=== PATIENT | male | born 1995 | race Caucasian/White ===

== ENCOUNTER 2016-11-09 02:18 | Emergency (ER) | payer BC ==
[2016-11-09 02:28] VITALS: BP 143/73
[2016-11-09] MEDS ORDERED: DOXYcycline CAP(*) 100 MG PO ONE (03:19)
[2016-11-09] MEDS ORDERED: cefTRIAXone VIAL(*) 250 MG VIAL IM ONE (03:19)
--- NOTE | 2016-11-09 04:11 | ED ---
Complaint/Male - History of Current Complaint Chief Complaint: EDUrogenitalProblems Time Seen by Provider: 11/09/16 03:07 Hx Obtained From: Patient, Other: - Patient presents for evaluation of a few days of bumps on his groin after shaving before having unprotected sex with a female friend. No allev factors. Concerned for STD and came for evaluation. - Allergies/Home Medications Allergies/Adverse Reactions: Allergies Allergy/AdvReac Type Severity Reaction Status Date / Time No Known Allergies Allergy Verified 03/12/15 19:43 PMH/Surg Hx/FS Hx/Imm Hx Previously Healthy: Yes Infectious Disease History: No Infectious Disease History: Denies: Traveled Outside the [place] in Last 30 Days - Social History Alcohol Use: Occasionally Substance Use Type: Reports: None Smoking Status (MU): Never Smoked Tobacco Review Of Systems Genitourinary: Negative: Dysuria, Hematuria, Frequency All Other Systems Reviewed And Are Negative: Yes Physical Exam Triage Information Reviewed: Yes Vital Signs On Initial Exam: Initial Vitals Temp Pulse Resp BP Pulse Ox 97.5 F 69 18 143/73 100 11/09/16 02:22 11/09/16 02:22 11/09/16 02:22 11/09/16 02:22 11/09/16 02:22 Vital Signs Reviewed: Yes Appearance: Positive: Well-Appearing, No Pain Distress, Well-Nourished Skin: Positive: Warm, Skin Color Reflects Adequate Perfusion, Dry, Other - Several follicultis on the shaved suprapubic region; however, single painless but pruritic lesion on the L side of base of glans. No regional adenopathy. Head/Face: Positive: Normal Head/Face Inspection Eyes: Positive: Normal, EOMI, NEMESIO ENT: Positive: Normal ENT inspection, Hearing grossly normal, Pharynx normal Neck: Positive: Supple, Nontender, No Lymphadenopathy Respiratory/Lung Sounds: Positive: Clear to Auscultation, Breath Sounds Present Cardiovascular: Positive: Normal, RRR, Pulses are Symmetrical in both Upper and Lower Extremities Abdomen Description: Positive: Nontender, No Organomegaly Male Genital Exam: Positive: normal genitalia, no hernia. Negative: epididymal tenderness, erythema, hernia mass, inguinal tenderness, scrotum tenderness (R), scrotum tenderness (L), testicular tenderness (R), testicular tenderness (L), urethral discharge Musculoskeletal: Positive: Normal, Strength/ROM Intact Neurological: Positive: Normal, Sensory/Motor Intact, Alert, Oriented to Person Place, Time, CN Intact II-III Diagnostics - Vital Signs Vital Signs Temp Pulse Resp BP Pulse Ox 11/09/16 02:22 97.5 F 69 18 143/73 100 - Laboratory Lab Statement: Any lab studies that have been ordered have been reviewed, and results considered in the medical decision making process. Complaint Male Course/Dx - Differential Dx/Diagnosis Differential Diagnosis/HQI/PQRI: Other - Folliculitis and possible STD expossure. He was advised to visit the health department to be evaluated for HIV and syphillis. We would check for GC/Chlaymdia as well as discuss these concerns with partner. Provider Diagnoses: STD exposure. Folliculitis.
== END 2016-11-09 03:38 | disposition home or self-care (01) ==
LOC: ED 02:18
DX: L73.9 Follicular disorder, unspecified (principal); Z20.2 Contact with and (suspected) exposure to infections with a predominantly sexual mode of transmission
CPT/HCPCS: 87491; 87591; 96372; A9270-GY; J0696

== ENCOUNTER 2016-11-14 14:44 | Emergency (ER) | payer BC ==
[2016-11-14 16:04] VITALS: BP 144/61
--- NOTE | 2016-11-14 17:37 | UC ---
Complaint Male HPI - HPI Summary HPI Summary: HAS HAD BUMPS ON GENITALS FOR 9 DAYS; SEEN IN ED SIX DAYS AGO, TREATED FOR GC CHLAMYDIA. TOLD IT WAS CELLULITIS AND GIVEN ABX. CONDITION WORSENING AND SPREADING. RECENTLY WITH NEW SEXUAL PARTNER 1.5 WEEKS AGO. - History of Current Complaint Chief Complaint: UCRash Stated Complaint: RASH AND SORES Time Seen by Provider: 11/14/16 15:58 Hx Obtained From: Patient Onset/Duration: Sudden Onset, Lasting Days, Still Present Timing: Intermittent Severity Initially: Mild Severity Currently: Mild Pain Intensity: 0 Pain Scale Used: 0-10 Numeric Location: Groin - GROIN AND PENIS Aggravating Factor(s): Nothing Alleviating Factor(s): Nothing - Risk Factors Testicular Torsion: Negative - Allergies/Home Medications Allergies/Adverse Reactions: Allergies Allergy/AdvReac Type Severity Reaction Status Date / Time No Known Allergies Allergy Verified 03/12/15 19:43 PMH/Surg Hx/FS Hx/Imm Hx Previously Healthy: Yes - Surgical History Surgical History: None - Family History Known Family History: Negative: Diabetes - Social History Occupation: Employed Full-time Lives: Alone Alcohol Use: Occasionally Substance Use Type: None Smoking Status (MU): Never Smoked Tobacco Review of Systems Constitutional: Negative Skin: Rash - GROIN AND PENIS Eyes: Negative ENT: Negative Respiratory: Negative Cardiovascular: Negative Gastrointestinal: Negative Genitourinary: Negative Motor: Negative Neurovascular: Negative Musculoskeletal: Negative Neurological: Negative Psychological: Negative All Other Systems Reviewed And Are Negative: Yes Physical Exam Triage Information Reviewed: Yes Appearance: Well-Appearing, No Pain Distress, Well-Nourished Vital Signs: Initial Vital Signs Temp 98.7 F 11/14/16 15:58 Pulse 83 11/14/16 15:58 Resp 16 11/14/16 15:58 BP 144/61 11/14/16 15:58 Pulse Ox 99 11/14/16 15:58 Vital Signs Reviewed: Yes Eye Exam: Normal ENT Exam: Normal ENT: Positive: Normal ENT inspection, Hearing grossly normal, TMs normal Dental Exam: Normal Neck exam: Normal Neck: Positive: Supple Respiratory Exam: Normal Respiratory: Positive: Chest non-tender, Lungs clear, Normal breath sounds, No respiratory distress, No accessory muscle use Cardiovascular Exam: Normal Cardiovascular: Positive: RRR, No Murmur, Pulses Normal Abdominal Exam: Normal Abdomen Description: Positive: Nontender, No Organomegaly Musculoskeletal Exam: Normal Musculoskeletal: Positive: Strength Intact, ROM Intact Neurological Exam: Normal Psychological Exam: Normal Psychological: Positive: Normal Response To Family Skin: Positive: Other - DIFFUSE VESICULAR RASH ON PENIS AND MONS PUBIS RESEMBLING HSV. ALSO ON DENS AND ON PUBIC AREA Diffuse small, erythematous, nondescript papuleS, often excoriated and tipped with hemorrhagic crust Complaint Male Course/Dx - Differential Dx/Diagnosis Differential Diagnosis/HQI/PQRI: Other - SCABIES, HSV, SYPHILLIS Provider Diagnoses: HSV. SCABIES Discharge - Discharge Plan Condition: Stable Disposition: HOME Prescriptions: Permethrin [Elimite] 5 % TOPICAL SEE INSTRUCTIONS #1 cre Valacyclovir HCl [Valtrex] 500 mg PO BID #20 tab Patient Education Materials: Genital Herpes Simplex (ED), Scabies (ED) Referrals: Casey TEJADA,Roberto Avilez [Primary Care Provider] -
== END 2016-11-14 16:50 | disposition home or self-care (01) ==
LOC: UCEAST 14:44
DX: A60.01 Herpesviral infection of penis (principal); B86 Scabies
CPT/HCPCS: 87529; 99212; G0463

== ENCOUNTER 2017-05-08 15:41 | Emergency (ER) | payer BC ==
[2017-05-08 15:49] VITALS: BP 134/52
--- NOTE | 2017-05-08 22:40 | UC ---
Maday Nye Edward, scribed for Kash Bergeron MD on 05/08/17 at 1627 . Rectal Pain HPI - HPI Summary HPI Summary: 21 y/o male presents to [facility] c/o acute on chronic rectal pain starting three days ago. The pain is located in his anus. Pain is aggravated with bowel movements. The patient notices bright red blood when he wipes. He feels like there is "something in his anus". Denies constipation, ABD pain, N/V, back pain. Associated sx: blood in stool (none in past few days). Pt has never had hemorrhoids removed. NKDA. - History Of Current Complaint Chief Complaint: UCGeneralIllness Stated Complaint: HEMORRHOIDS Time Seen by Provider: 05/08/17 16:21 Hx Obtained From: Patient Onset/Duration: Gradual Onset, Lasting Days - 3 days ago, Still Present Timing: Constant Location Of Pain: Anal, Rectal Aggravating Factor(s): Bowel Movement Associated Signs And Symptoms: Positive: Bright Red Blood w/Stool, Other - No ABD pain, no N/V. Negative: Constipation Related History: Hemorrhoids - Allergies/Home Medications Allergies/Adverse Reactions: Allergies Allergy/AdvReac Type Severity Reaction Status Date / Time No Known Allergies Allergy Verified 05/08/17 15:49 PMH/Surg Hx/FS Hx/Imm Hx - Additional Past Medical History Additional PMH: Negative: asthma Previously Healthy: Yes - Surgical History Surgical History: None - Family History Known Family History: Negative: Diabetes - Social History Alcohol Use: Occasionally Substance Use Type: None Smoking Status (MU): Never Smoked Tobacco Review of Systems Constitutional: Negative Skin: Negative Eyes: Negative ENT: Negative Respiratory: Negative Cardiovascular: Negative Gastrointestinal: Other - Rectal pain. Bright red blood when he wipes and with stool. No constipation, ABD pain, N/V Genitourinary: Negative Motor: Negative Neurovascular: Negative Musculoskeletal: Negative - No back pain Neurological: Negative Psychological: Negative All Other Systems Reviewed And Are Negative: Yes Physical Exam Triage Information Reviewed: Yes Vital Signs: Initial Vital Signs Temp 98.6 F 05/08/17 15:46 Pulse 61 05/08/17 15:46 Resp 16 05/08/17 15:46 BP 134/52 05/08/17 15:46 Pulse Ox 100 05/08/17 15:46 Vital Signs Reviewed: Yes - Additional Comments The patient is well-nourished in no acute distress and in no acute pain. The skin is warm and dry and skin color reflects adequate perfusion. HEENT: The head is normocephalic and atraumatic. The pupils are equal and reactive. The conjunctivae are clear and without drainage. Nares are patent and without drainage. Mouth reveals moist mucous membranes and the throat is without erythema and exudate. The external ears are intact. The ear canals are patent and without drainage. The tympanic membranes are intact. Neck is supple with full range of motion and non-tender. There are no carotid bruits. There is no neck vein distension. Respiratory: Chest is non-tender. Lungs are clear to auscultation and breath sounds are symmetrical and equal. Cardiovascular: Hear is regular rate and rhythm. There is no murmur or rub auscultated. There is no peripheral edema and pulses are symmetrical and equal. Abdomen: The abdomen is soft and non-tender. There are normal bowel sounds heard in all four quadrants and there is no organomegaly palpated. Musculoskeletal: There is no back pain noted. Extremities are non-tender with full range of motion. There is good capillary refill. There is no peripheral edema or calf tenderness elicited. Neurological: Patient is alert and oriented to person, place and time. The patient has symmetrical motor strength in all four extremities. Cranial nerves are grossly intact. Deep tendon reflexes are symmetrical and equal in all four extremities. Psychiatric: The patient has an appropriate affect and does not exhibit any anxiety or depression. Rectal exam: There were no obvious hemorrhoids palpated. There was cracking and possible ulcerations around the rectum. Rectal Pain Course/Dx - Course Course Of Treatment: 21 y/o male presents to [facility] c/o acute on chronic rectal pain starting three days ago. The pain is located in his anus. Pain is aggravated with bowel movements. The patient notices bright red blood when he wipes. He feels like there is "something in his anus". Denies constipation, ABD pain, N/V, back pain. Associated sx: blood in stool (none in past few days). Pt has never had hemorrhoids removed. NKDA. Pt will be given medications and d/c home with f/u with PCP. Pt will be instructed to sit in a warm bath for 10-15 minutes every day and to consider taking laxatives. - Differential Dx/Diagnosis Differential Diagnosis/HQI/PQRI: Hemorrhoid(s), Rectal Fissure Provider Diagnoses: Anal fissure Discharge - Discharge Plan Condition: Stable Disposition: HOME Prescriptions: Hydrocortisone 2.5% CREAM(NF) 1 applic TOPICAL QID #30 tube traMADol TAB* [Ultram*] 50 mg PO Q6HR PRN #20 tab MDD 4 PRN Reason: Pain Patient Education Materials: Anal Fissure (ED) Referrals: Casey TEJADA,Roberto Avilez [Primary Care Provider] - 3 Days (Please f/u in 2-3 days) Additional Instructions: Sit in a warm tub every day for 10-15 minutes. Take laxatives The documentation as recorded by the Maday mao Edward accurately reflects the service I personally performed and the decisions made by , Kash Bergeron MD.
== END 2017-05-08 16:50 | disposition home or self-care (01) ==
LOC: UCEAST 15:41
DX: K60.2 Anal fissure, unspecified (principal)
CPT/HCPCS: 99212; G0463

== ENCOUNTER 2017-09-21 13:09 | Emergency (ER) | payer BC ==
[2017-09-21 13:45] VITALS: BP 137/83
--- NOTE | 2017-09-21 20:37 | UC ---
Oneil Nye Thomas, scribed for Rodolfo Hussein MD on 09/21/17 at 1524 . Rectal Pain HPI - HPI Summary HPI Summary: The patient is a 22 year old male presenting to Urgent Care complaining of rectal pain for the last eight months that has worsened in the last two days. The patient says I have to plan my entire day around my bowel movements. The patient was evaluated at urgent care four months ago by Dr. Bergeron, and this documentation was reviewed. At that visit four months ago, the patient had a rectal exam that was negative for hemorrhoids. At that visit four months ago, the patient was given a hydrocortisone cream. When the patient applied this cream after that visit four months ago, it caused him great itching so he stopped application of the cream. This complaint has not yet been evaluated by a cashier manager. - History Of Current Complaint Chief Complaint: UCGI Stated Complaint: PERSONAL Hx Obtained From: Patient Onset/Duration: Still Present, Worse Since - last two days, Other - Onset 8 months ago Timing: Constant Severity Currently: Moderate Pain Intensity: 3 Pain Scale Used: 0-10 Numeric Location Of Pain: Rectal Aggravating Factor(s): Bowel Movement Alleviating Factor(s): Nothing Associated Signs And Symptoms: Positive: External Hemorrhoid - Allergies/Home Medications Allergies/Adverse Reactions: Allergies Allergy/AdvReac Type Severity Reaction Status Date / Time No Known Allergies Allergy Verified 09/21/17 13:45 PMH/Surg Hx/FS Hx/Imm Hx Previously Healthy: No - Anal fissures; NEGATIVE: DM - Surgical History Surgical History: None - Family History Known Family History: Negative: Diabetes - Social History Alcohol Use: Occasionally Substance Use Type: None Smoking Status (MU): Never Smoked Tobacco - Immunization History Most Recent Influenza Vaccination: n/a Review of Systems Constitutional: Other - NEGATIVE: fever Gastrointestinal: Other - Rectal pain Is Patient Immunocompromised?: No All Other Systems Reviewed And Are Negative: Yes Physical Exam Triage Information Reviewed: Yes Vital Signs: Initial Vital Signs Temp 98.4 F 09/21/17 13:34 Pulse 71 09/21/17 13:34 Resp 14 09/21/17 13:34 BP 137/83 09/21/17 13:34 Pulse Ox 99 09/21/17 13:34 Vital Signs Reviewed: Yes - Additional Comments VITAL SIGNS: Reviewed. GENERAL: Patient is a well-developed and nourished male who is lying comfortable in the stretcher. Patient is not in any acute respiratory distress. HEAD AND FACE: Normocephalic EYES: PERRLA, EOMI x 2. EARS: Hearing grossly intact. MOUTH: Oropharynx within normal limits. NECK: Supple, trachea is midline, no adenopathy, no JVD, no carotid bruit. CHEST: Symmetric, no tenderness at palpation LUNGS: Clear to auscultation bilaterally. No wheezing or crackles. CVS: Regular rate and rhythm, S1 and S2 present, no murmurs or gallops appreciated. ABDOMEN: Soft, non-tender. Bowel sounds are normal. No abdominal abnormal pulsations. RECTAL (PARTIAL): The patient has an external hemorrhoid at 6 oclock. He refuses a full rectal exam. EXTREMITIES: Full ROM in all major joints, no edema, no cyanosis or clubbing. NEURO: Alert and oriented x 3. No acute neurological deficits. Speech is normal and follows commands. SKIN: Dry and warm Rectal Pain Course/Dx - Course Course Of Treatment: The patient is a 22 year old male presenting to Urgent Care complaining of rectal pain for the last eight months that has worsened in the last two days. The patient says I have to plan my entire day around my bowel movements. The patient was evaluated at urgent care four months ago by Dr. Bergeron, and this documentation was reviewed. At that visit four months ago, the patient had a rectal exam that was negative for hemorrhoids. At that visit four months ago, the patient was given a hydrocortisone cream. When the patient applied this cream after that visit four months ago, it caused him great itching so he stopped application of the cream. This complaint has not yet been evaluated by a cashier manager. The patient has an external hemorrhoid at 6 oclock. He refuses a full rectal exam. The patient is diagnosed with rectal pain. Unable to determined if patien has any fissures, or any other pathology. The patient will be discharged home and was strongly encouraged to follow up with gastroenterology. I did discuss with the patient that gastroenterology follow-up is the best way to address his complaints. The patient is prescribed Anusol. He was recomended to go to the ER if symptoms worsen, increase in pain or any other symptom. - Differential Dx/Diagnosis Differential Diagnosis/HQI/PQRI: Hemorrhoid(s), Perirectal Abscess, Rectal Fissure, Rectal Foreign Body, STD Provider Diagnoses: Rectal pain Discharge - Discharge Plan Condition: Stable Disposition: HOME Prescriptions: Hydrocortisone SUPP* [Anusol HC Supp*] 25 mg [place] BID #10 supp Patient Education Materials: Rectal Pain (ED) Referrals: Jaison Suarez MD [Medical Doctor] - Additional Instructions: Follow up with Dr. Suarez, gastroenterology, in three days. Return to urgent care or the emergency department for any new or worsening symptoms. The documentation as recorded by the Oneil mao Thomas accurately reflects the service I personally performed and the decisions made by Keenan gr Walter, MD.
== END 2017-09-21 15:29 | disposition home or self-care (01) ==
LOC: UCEAST 13:09
DX: K62.89 Other specified diseases of anus and rectum (principal); K64.4 Residual hemorrhoidal skin tags
CPT/HCPCS: 99212; G0463

== ENCOUNTER 2018-03-08 15:52 | Emergency (ER) | payer BC ==
[2018-03-08 16:07] VITALS: BP 146/73
[2018-03-08] MEDS ORDERED: Acyclovir* 200 MG CAP PO ONE (16:16)
--- NOTE | 2018-03-21 18:07 | UC ---
Skin Complaint HPI - HPI Summary HPI Summary: patient c/o genital rash appearing several days ago with some itching and burning on site. Denies fever, chills or rash anywhere else - History of Current Complaint Chief Complaint: UCGU Time Seen by Provider: 03/08/18 16:11 Stated Complaint: OUTBREAK Hx Obtained From: Patient Onset/Duration: Sudden Onset, Lasting Days Skin Exposure Onset/Duration: Days Ago Timing: Constant Onset Severity: Mild Current Severity: Mild Pain Intensity: 0 Pain Scale Used: 0-10 Numeric Location: Discrete, Other - genital Character: Pruritus Aggravating Factor(s): Nothing Alleviating Factor(s): Nothing Associated Signs & Symptoms: Positive: Negative Related History: Trauma - Allergy/Home Medications Allergies/Adverse Reactions: Allergies Allergy/AdvReac Type Severity Reaction Status Date / Time No Known Allergies Allergy Verified 03/08/18 16:00 Home Medications: Home Medications diphenhydrAMINE HCl [Allergy Medication] 03/08/18 [History] Review of Systems Constitutional: Negative All Other Systems Reviewed And Are Negative: Yes PMH/Surg Hx/FS Hx/Imm Hx Previously Healthy: Yes - Surgical History Surgical History: None - Family History Known Family History: Negative: Diabetes - Social History Alcohol Use: Occasionally Substance Use Type: None Smoking Status (MU): Never Smoked Tobacco - Immunization History Most Recent Influenza Vaccination: n/a Physical Exam Triage Information Reviewed: Yes Appearance: No Pain Distress, Well-Nourished Vital Signs: Initial Vital Signs Temp 99.1 F 03/08/18 16:01 Pulse 82 03/08/18 16:01 Resp 18 03/08/18 16:01 BP 146/73 03/08/18 16:01 Pulse Ox 98 03/08/18 16:01 Eyes: Positive: Conjunctiva Clear ENT: Positive: Hearing grossly normal Neck: Positive: Supple, Nontender Respiratory: Positive: No respiratory distress Cardiovascular: Positive: Pulses Normal, Brisk Capillary Refill Male Genital Exam: Positive: Normal Genitalia, No Hernia, Other - cluster of vesicles penile shaft Course/Dx - Course Course Of Treatment: Herpes genitalis, start valacyclovir as prescribed, abstain from intercourse until lesions have completely crusted - Diagnoses Provider Diagnoses: Herpes simplex genitalis Discharge - Sign-Out/Discharge Documenting (check all that apply): Discharge/Admit/Transfer - Discharge Plan Condition: Good Disposition: HOME Prescriptions: ValACYclovir (*) [Valtrex 500 mg (*)] 500 mg PO BID 3 Days #6 tab Patient Education Materials: Valacyclovir (By mouth), Genital Herpes Simplex ( ED) Referrals: [facility] [Outside] No Primary Care Phys,NOPCP [Primary Care Provider] - - Billing Disposition and Condition Condition: GOOD Disposition: Home
== END 2018-03-08 16:30 | disposition home or self-care (01) ==
LOC: UCEAST 15:52
DX: A60.01 Herpesviral infection of penis (principal)
CPT/HCPCS: 99212; A9270-GY; G0463

== ENCOUNTER 2019-07-09 23:35 | Emergency (ER) | payer BC ==
[2019-07-10] MEDS ORDERED: Acyclovir* 200 MG CAP PO ONE (00:03)
--- NOTE | 2019-07-10 00:03 | ED ---
GI/ HPI - HPI Summary HPI Summary: The is 23 year old male presenting with a herpes simple outbreak. He states that the rash began this morning, and looks and feels exactly like his previous episodes of HSV. He denies any fever. He denies any pain, discharge or bleeding , but reports pruritus. no urinary symptoms. is not concerned about other stds. no new sexual partners. no testicular pain. - History of Current Complaint Chief Complaint: EDRashSkinAbscess Time Seen by Provider: 07/09/19 23:56 Stated Complaint: HSV1 OUTBREAK PER PT Pain Intensity: 0 - Allergy/Home Medications Allergies/Adverse Reactions: Allergies Allergy/AdvReac Type Severity Reaction Status Date / Time No Known Allergies Allergy Verified 07/09/19 23:41 PMH/Surg Hx/FS Hx/Imm Hx Endocrine/Hematology History: Denies: Hx Anticoagulant Therapy Respiratory History: Denies: Hx Asthma Infectious Disease History: Yes Infectious Disease History: Reports: Traveled Outside the [place] in Last 30 Days - Family History Known Family History: Negative: Diabetes - Social History Alcohol Use: Rare Substance Use Type: Reports: None Smoking Status (MU): Never Smoked Tobacco Review of Systems Negative: Fever Negative: Chest Pain Negative: Shortness Of Breath Positive: Rash All Other Systems Reviewed And Are Negative: Yes Physical Exam Triage Information Reviewed: Yes Vital Signs On Initial Exam: Initial Vitals Temp Pulse Resp BP Pulse Ox 97.7 F 66 16 138/72 100 07/09/19 23:38 07/09/19 23:38 07/09/19 23:38 07/09/19 23:38 07/09/19 23:38 Vital Signs Reviewed: Yes Appearance: Positive: Well-Appearing Skin: Positive: Warm, Dry, Other - vesciles on left groin Head/Face: Positive: Normal Head/Face Inspection Eyes: Positive: Normal, Conjunctiva Clear ENT: Positive: Pharynx normal Respiratory/Lung Sounds: Positive: Clear to Auscultation, Breath Sounds Present Cardiovascular: Positive: Normal, RRR Musculoskeletal: Positive: Normal Neurological: Positive: Normal Psychiatric: Positive: Normal Procedures - Sedation Patient Received Moderate/Deep Sedation with Procedure: No Diagnostics - Vital Signs Vital Signs Temp Pulse Resp BP Pulse Ox 07/09/19 23:38 97.7 F 66 16 138/72 100 - Laboratory Lab Statement: Any lab studies that have been ordered have been reviewed, and results considered in the medical decision making process. GIGU Course/Dx - Course Course Of Treatment: 23 year old male presenting with a herpes simple outbreak. He states that the rash began this morning, and looks and feels exactly like his previous episodes of HSV. He denies any fever. He denies any pain, discharge or bleeding, but reports pruritus. no urinary symptoms. is not concerned about other stds. no new sexual partners. no testicular pain. on exam has vesicles present on left inguinal area. will treat with valtrex. patient understand and agrees with plan. - Diagnoses Differential Diagnoses - Male: STD, Urinary Tract Infection, Other - herpes Provider Diagnoses: Herpes genitalia Discharge ED - Sign-Out/Discharge Documenting (check all that apply): Patient Departure - Discharge Plan Condition: Good Disposition: HOME Prescriptions: ValACYclovir (*) [Valtrex 500 mg (*)] 500 mg PO BID #6 tab Patient Education Materials: Genital Herpes Simplex (ED) Referrals: Kenna Gutierrez DO [Primary Care Provider] - Additional Instructions: take valtrex twice a day for 3 days Return to ED if develop any new or worsening symptoms - Billing Disposition and Condition Condition: GOOD Disposition: Home - Attestation Statements Provider Attestation: I was available for consultation for this patient. I did not evaluate the patient or participate in any medical decision making or disposition decisions unless I am specifically named in the chart as having consulted on the patient. If I have consulted on the patient, please see my own ED note on the patient encounter. Zeynep Salter MD
[2019-07-10 00:36] VITALS: BP 112/71
== END 2019-07-10 00:33 | disposition home or self-care (01) ==
LOC: ED 23:35
DX: A60.00 Herpesviral infection of urogenital system, unspecified (principal); R21 Rash and other nonspecific skin eruption
CPT/HCPCS: 99282

== ENCOUNTER 2019-08-24 23:18 | Emergency (ER) | payer BC ==
[2019-08-24] MEDS ORDERED: HYDROcodone/ACETAMIN 5-325 MG* 1 TAB PO ONE (23:46)
[2019-08-24] MEDS ORDERED: Lidocaine 1% MPF ** 5 ML VIAL INJ ONE (23:53)
--- NOTE | 2019-08-24 23:54 | ED ---
Skin Complaint - HPI Summary HPI Summary: 24 year old male presents with a chief complaint of a painful lump in his right groin area since Saturday. He has not noticed any drainage from the area. He states that the pain has gotten worse, prompting him to come to the ED tonight. He rates the pain 3/10. Denies fever, chills, night sweats. Denies new sexual partners. PMH significant for HSV1. no history of MRSA. - History of Current Complaint Chief Complaint: EDRashSkinAbscess Time Seen by Provider: 08/24/19 23:38 Stated Complaint: CYST PER PT Pain Intensity: 3 - Allergy/Home Medications Allergies/Adverse Reactions: Allergies Allergy/AdvReac Type Severity Reaction Status Date / Time No Known Allergies Allergy Verified 08/24/19 23:21 PMH/Surg Hx/FS Hx/Imm Hx Endocrine/Hematology History: Denies: Hx Anticoagulant Therapy Respiratory History: Denies: Hx Asthma - Immunization History Immunizations Up to Date: Yes Infectious Disease History: No Infectious Disease History: Denies: Traveled Outside the [place] in Last 30 Days - Family History Known Family History: Negative: Diabetes - Social History Alcohol Use: Rare Substance Use Type: Reports: None Smoking Status (MU): Never Smoked Tobacco Review of Systems Constitutional: Negative Cardiovascular: Negative Respiratory: Negative Gastrointestinal: Negative Genitourinary: Negative Positive: Other - abscess in right groin All Other Systems Reviewed And Are Negative: Yes Physical Exam Triage Information Reviewed: Yes Vital Signs On Initial Exam: Initial Vitals Temp Pulse Resp BP Pulse Ox 98.4 F 68 14 149/81 98 08/24/19 23:21 08/24/19 23:21 08/24/19 23:21 08/24/19 23:21 08/24/19 23:21 Vital Signs Reviewed: Yes Appearance: Positive: Well-Appearing, No Pain Distress, Well-Nourished Skin: Positive: Warm, Skin Color Reflects Adequate Perfusion, Dry, Other - 3cm by 1cm abscess in right groin Head/Face: Positive: Normal Head/Face Inspection Eyes: Positive: Normal, Conjunctiva Clear ENT: Positive: Pharynx normal Neck: Positive: Supple Respiratory/Lung Sounds: Positive: Clear to Auscultation, Breath Sounds Present Cardiovascular: Positive: Normal, RRR Musculoskeletal: Positive: Normal Neurological: Positive: Normal, Alert, Oriented to Person Place, Time Psychiatric: Positive: Normal, Affect/Mood Appropriate Procedures - Sedation Patient Received Moderate/Deep Sedation with Procedure: No - Incision and Drainage abscess Site: right groin Anesthesia: Local Instrument(s): Scalpel Diagnostics - Vital Signs Vital Signs Temp Pulse Resp BP Pulse Ox 08/24/19 23:21 98.4 F 68 14 149/81 98 - Laboratory Lab Statement: Any lab studies that have been ordered have been reviewed, and results considered in the medical decision making process. Course/Dx - Course Course Of Treatment: 24 year old male presents with painful abscess in right groin since Saturday. Pain has increased over the last couple of days. Denies fever, chills, nausea. Local anesthesia achieved using 1% lidocaine. Abscess drained using sterile technique by Reina ANGEL. Culture and gram stain collected and sent to lab. Wound dressed. Patient placed on Clindamycin 300 mg TID x 10 days. told to follow up for wound check. patient understand and agrees with plan. - Differential Diagnoses - Skin Complaint Differential Diagnoses: Cellulitis, Contact Dermatitis - Diagnoses Provider Diagnoses: Abscess Discharge ED - Sign-Out/Discharge Documenting (check all that apply): Patient Departure - Discharge Plan Condition: Good Disposition: HOME Prescriptions: Clindamycin Cap(NF) [Clindamycin Cap 300 mg Cap(NF)] 300 mg PO TID #29 cap Patient Education Materials: Abscess (ED) Referrals: Kenna Gutierrez DO [Primary Care Provider] - Additional Instructions: Take antibiotic three times a day for 10 days, first dose given in ED Apply warm compresses to area Take ibuprofen or Tylenol for pain every 6 hours Follow up with primary within 3 days Return to ED if develop fever, area of redness spreads, or any new or worsening symptoms - Billing Disposition and Condition Condition: GOOD Disposition: Home
[2019-08-25] MEDS ORDERED: Clindamycin CAP* 150 MG PO ONE (00:22)
[2019-08-25 00:33] VITALS: BP 132/79
== END 2019-08-25 00:33 | disposition home or self-care (01) ==
LOC: ED 23:18
DX: L02.214 Cutaneous abscess of groin (principal)
CPT/HCPCS: 10060; 87070; 87077; 87186; 87205; 99282; A9270-GY